=== PATIENT | female | born 1975 | race Caucasian/White ===

== ENCOUNTER 2018-04-27 08:16 | Emergency (ER) | payer BC ==
--- OUTSIDE RECORDS SUMMARY | 2018-04-27 08:25 | XMS REPORT ---
:1975 [facility] Address [address] [place] [address] Dr. Santacruz [address] [place] [id number] Care Team Providers Name Role Phone Unavailable Unavailable Unavailable Problems This patient has no known problems. Allergies, Adverse Reactions, Alerts This patient has no known allergies or adverse reactions. Medications This patient has no known medications.
[2018-04-27] MEDS ORDERED: DEXAMETHASONE 4 MG/ML VIAL ONE (09:16)
[2018-04-27] MEDS ORDERED: MECLIZINE HCL 12.5 MG TAB ONE (09:16)
--- NOTE | 2018-04-27 09:30 | ER ---
Nurse's Notes [facility] Name: Mony Osullivan Age: 43 yrs Sex: Female : 1975 Arrival Date: 04/27/2018 Time: 08:20 Bed 16 Private MD: Tatyana Quiros Diagnosis: Other peripheral vertigo, left ear;Influenza-like illness Presentation: 04/27 08:44 Presenting complaint: Patient states: woke up this morning feeling dizzy, worse when iw moving head back and forth and side to side, has been dealing with a cold, denies headache, denies fever. Transition of care: patient was not received from another setting of care. Onset of symptoms was April 27, 2018. Risk Assessment: Do you want to hurt yourself or someone else? Patient reports no desire to harm self or others. Initial Sepsis Screen: Does the patient meet any 2 criteria? No. Patient's initial sepsis screen is negative. Does the patient have a suspected source of infection? No. Patient's initial sepsis screen is negative. Care prior to arrival: None. 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 - Social history:: Smoking status: Patient/guardian denies using tobacco. - Ebola Screening: : Patient negative for fever greater than or equal to 101.5 degrees Fahrenheit, and additional compatible Ebola Virus Disease symptoms Patient denies exposure to infectious person Patient denies travel to an Ebola-affected area in the 21 days before illness onset No symptoms or risks identified at this time. Screenin:12 Abuse screen: Denies threats or abuse. Denies injuries from another. Nutritional bp screening: No deficits noted. Tuberculosis screening: No symptoms or risk factors identified. Fall Risk None identified. Assessment: 09:00 General: Appears in no apparent distress. comfortable, Behavior is cooperative, bp appropriate for age, anxious. Pain: Denies pain. Neuro: Level of Consciousness is awake, alert, obeys commands, Oriented to person, place, time, situation, Appropriate for age Moves all extremities. Full function Gait is steady, Reports dizziness. Cardiovascular: No deficits noted. Respiratory: Airway is patent Respiratory effort is even, unlabored, Respiratory pattern is regular, symmetrical. GI: No signs and/or symptoms were reported involving the gastrointestinal system. : No signs and/or symptoms were reported regarding the genitourinary system. EENT: No deficits noted. Derm: No deficits noted. Musculoskeletal: Circulation, motion, and sensation intact. Range of motion: intact in all extremities. 09:37 Reassessment: PT D/C HOME AMBULATORY, DX WITH VERTIGO. bp Vital Signs: 08:45 BP 114 / 73; Pulse 90; Resp 16; Temp 97.9(TE); Pulse Ox 98% on R/A; Weight 70.31 kg; iw Height 5 ft. 6 in. (167.64 cm); Pain 0/10; 09:37 BP 111 / 96; Pulse 80; Resp 14; Pulse Ox 100% ; bp 08:45 Body Mass Index 25.02 (70.31 kg, 167.64 cm) iw ED Course: 08:20 Patient arrived in ED. mr 08:20 Tatyana Quiros is Private Physician. mr 08:36 Leandro Cho MD is Attending Physician. ps1 08:41 Gustavo Shukla, YANCI is Primary Nurse. bp 08:45 Triage completed. iw 08:45 Arm band placed on. iw 09:12 Patient has correct armband on for positive identification. Bed in low position. Call bp light in reach. Side rails up X2. 09:29 Tatyana Quiros is Referral Physician. ps1 09:38 No provider procedures requiring assistance completed. Patient did not have IV access bp during this emergency room visit. Administered Medications: 09:10 Drug: Meclizine 25 mg Route: PO; bp 09:39 Follow up: Response: No adverse reaction; Marked relief of symptoms bp 09:10 Drug: Decadron - Dexamethasone 10 mg {Note: GIVEN PO.} Route: IVP; Site: Other; bp 09:38 Follow up: Response: No adverse reaction; Marked relief of symptoms bp Outcome: 09:29 Discharge ordered by . ps1 09:38 Discharged to home ambulatory, with family. bp 09:38 Condition: stable 09:38 Discharge instructions given to patient, Instructed on discharge instructions, follow up and referral plans. medication usage, Demonstrated understanding of instructions, follow-up care, medications, Prescriptions given X 3. 09:39 Patient left the ED. bp Signatures: Nicci Rivera Irene, RN RN iw Gustavo Shukla RN RN bp Leandro Cho MD MD ps1
--- NOTE | 2018-04-27 09:31 | EDPHYS ---
Physician Documentation [facility] Name: Mony Osullivan Age: 43 yrs Sex: Female : 1975 Arrival Date: 04/27/2018 Time: 08:20 Bed 16 Private MD: Tatyana Quiros ED Physician Leandro Cho HPI: 04/27 09:19 This 43 yrs old Female presents to ER via Ambulatory with complaints of ps1 Dizziness. 09:19 patient has had flu like illness for last 5 days. FLOWERS, sinus congestion, cough ps1 (productive), and now c/o dizziness. States that she has not been drinking 2/2 sore throat. Has ear fullness. . 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 - Social history:: Smoking status: Patient/guardian denies using tobacco. - Ebola Screening: : Patient negative for fever greater than or equal to 101.5 degrees Fahrenheit, and additional compatible Ebola Virus Disease symptoms Patient denies exposure to infectious person Patient denies travel to an Ebola-affected area in the 21 days before illness onset No symptoms or risks identified at this time. ROS: 09:19 Neck: Negative for injury, pain, and swelling, Cardiovascular: Negative for chest pain, ps1 palpitations, and edema, Abdomen/GI: Negative for abdominal pain, nausea, vomiting, diarrhea, and constipation, Back: Negative for injury and pain, MS/Extremity: Negative for injury and deformity, Skin: Negative for injury, rash, and discoloration. 09:19 Constitutional: Positive for body aches, fatigue, fever, malaise, poor PO intake. 09:19 ENT: Positive for sinus congestion. Exam: 09:19 Constitutional: This is a well developed, well nourished patient who is awake, alert, ps1 and in no acute distress. Head/Face: Normocephalic, atraumatic. Eyes: Pupils equal round and reactive to light, extra-ocular motions intact. Lids and lashes normal. Conjunctiva and sclera are non-icteric and not injected. 09:19 Cardiovascular: Regular rate and rhythm. No gallops, murmurs, or rubs. Normal PMI, no JVD. No pulse deficits. Respiratory: Lungs have equal breath sounds bilaterally, clear to auscultation and percussion. No rales, rhonchi or wheezes noted. No increased work of breathing, no retractions or nasal flaring. Abdomen/GI: Soft, non-tender, with normal bowel sounds. No distension or tympany. No guarding or rebound. No evidence of tenderness throughout. MS/ Extremity: Pulses equal, no cyanosis. Neurovascular intact. Full, normal range of motion. 09:19 ENT: External ear(s): swelling, that is minimal, bilaterally. 09:19 Neuro: Orientation: is normal, Mentation: is normal, HINTS: positive for gaze evoked nystagmus to left. No dysconjugate gaze, no catch up saccade. c/w peripheral vertigo. Vital Signs: 08:45 BP 114 / 73; Pulse 90; Resp 16; Temp 97.9(TE); Pulse Ox 98% on R/A; Weight 70.31 kg; iw Height 5 ft. 6 in. (167.64 cm); Pain 0/10; 09:37 BP 111 / 96; Pulse 80; Resp 14; Pulse Ox 100% ; bp 08:45 Body Mass Index 25.02 (70.31 kg, 167.64 cm) iw MDM: 09:18 Patient medically screened. ps1 Administered Medications: 09:10 Drug: Meclizine 25 mg Route: PO; bp 09:39 Follow up: Response: No adverse reaction; Marked relief of symptoms bp 09:10 Drug: Decadron - Dexamethasone 10 mg {Note: GIVEN PO.} Route: IVP; Site: Other; bp 09:38 Follow up: Response: No adverse reaction; Marked relief of symptoms bp Disposition: 04/27/18 09:29 Discharged to Home. Impression: Other peripheral vertigo, left ear, Influenza-like illness. - Condition is Stable. - Discharge Instructions: Dizziness, Influenza, Adult, Vertigo, [id number]. - Prescriptions for Meclizine 25 mg Oral Tablet - take 1 tablet by ORAL route every 8 hours As needed; 30 tablet. Zofran 8 mg Oral Tablet - take 1 tablet by ORAL route every 12 hours As needed; 20 tablet. chlorpheniramine maleate 4 mg Oral Tablet - take 1 tablet by ORAL route every 6 hours As needed; 30 tablet. - Medication Reconciliation Form, Thank You Letter, Antibiotic Education, Prescription Opioid Use form. - Follow up: Tatyana Quiros; When: As needed; Reason: Further diagnostic work-up, Recheck today's complaints, Continuance of care, Re-evaluation by your physician. Follow up: Emergency Department; When: As needed; Reason: Worsening of condition. Signatures: Gabbi Perla RN RN iw Gustavo Shukla RN RN bp Leandro Cho MD MD ps1 Corrections: (The following items were deleted from the chart) 09:39 09:29 04/27/2018 09:29 Discharged to Home. Impression: Other peripheral vertigo, left bp ear; Influenza-like illness. Condition is Stable. Forms are Medication Reconciliation Form, Thank You Letter, Antibiotic Education, Prescription Opioid Use. Follow up: Tatyana Quiros; When: As needed; Reason: Further diagnostic work-up, Recheck today's complaints, Continuance of care, Re-evaluation by your physician. Follow up: Emergency Department; When: As needed; Reason: Worsening of condition. ps1
== END 2018-04-27 09:39 | disposition home or self-care (01) ==
LOC: ER 08:16
DX: H81.399 Other peripheral vertigo, unspecified ear (principal); J11.1 Influenza due to unidentified influenza virus with other respiratory manifestations
CPT/HCPCS: 96374; 99283

== ENCOUNTER 2020-01-21 10:29 | Emergency (ER) | payer BC, OTHER ==
--- OUTSIDE RECORDS SUMMARY | 2020-01-21 10:31 | XMS REPORT ---
:1975 Author Organization [facility] Address [address] [facility] [address] [place] [address] Care Team Providers Name Role Phone Juan Wagoner [phone] PROBLEMS Type Condition ICD9-CM [id number] Onset Condition SNOMED Code Notes Code Code Dates Status Problem Acute F32.9 Active 785904542 depression Problem History of Z98.82 Active breast implant Problem Migraine G43.909 Active 64706817 without status migrainosus, not intractable, unspecified migraine type Problem GERD without K21.9 Active 931892332 esophagitis Problem Nausea alone R11.0 Active 355253466 ALLERGIES No Known Allergies ENCOUNTERS from 1975 to 2020-01-08 Encounter Location Date Provider Diagnosis [facility] [address] [facility] [address] Dec, Ritesh Martinez Gastroenteritis K52.9 [place] [address] IMMUNIZATIONS No Information SOCIAL HISTORY Tobacco Use: Social History Observation Description Date Details (start date - stop date) Former Smoker Sex Assigned At : Social History Observation Description Sex Assigned At Unknown PHQ9 Question Answer Notes Little interest or pleasure in doing things Several days Feeling down, depressed, or hopeless Nearly every day Trouble falling or staying asleep or sleeping too much Not a t all Feeling tired or having little energy More than half the day s Poor appetite or overeating Nearly every day Feeling bad about yourself, or that you are a failure, More than half the days or have let yourself or your family down Trouble concentrating on things, such as reading the Several days newspaper or watching television Moving or speaking so slowly that other people could Not at all have noticed; or the opposite, being so fidgety or restless that you have been moving around a lot more than usual Total Score 12 Interpretation Moderate Depression Thoughts that you would be better off or of Not at all hurting yourself in some way Alcohol Screen Question Answer Notes Did you have a drink containing alcohol in the past Yes year? Points 1 Interpretation Negative How often did you have a drink containing alcohol in Monthly or less (1 point) the past year? Tobacco Use/Smoking Question Answer Notes Are you a former smoker REASON FOR REFERRAL No Information VITAL SIGNS No information MEDICATIONS Medication SIG (Take, Route, Frequency, Start Date End Date Status Duration) Sertraline HCl 25 MG 1 tablet Orally Once a day for Active 30 Ubrelvy 100 MG 1 tablet may take second dose Dec, 15 Jan, Active at least 2 hours after first dose as needed Orally Once a day for 30 day(s) Dicyclomine HCl 20 MG 1 tablet Orally Four times a Dec, 5 2019 Active day as needed for cramping for 10 days Lansoprazole 30 MG take 1 capsule by mouth once Active daily for 30 days Oral Once a day for 90 days PROCEDURES No Information RESULTS No Results REASON FOR VISIT Sick/[place] pt MEDICAL (GENERAL) HISTORY Type Description Date Medical History GERD without esophagitis Medical History Migraine without status migrainosus, not intractable, unspecified migraine type Medical History Fibrocystic Breast Medical History Well woman exam with routine gynecologic al exam Medical History Acute vaginitis Surgical History Breast Implants Saline type. 1985 Goals Section No Information Health Concerns No Information MEDICAL EQUIPMENT No Information MENTAL STATUS No Information FUNCTIONAL STATUS No Information ASSESSMENTS Encounter Date Diagnosis Notes Dec, Gastroenteritis (ICD-10 - K52.9) PLAN OF TREATMENT Medication Medication Name Sig Start Date Stop Date Sertraline HCl 25 MG 1 tablet Orally Once a day for 30 Dicyclomine HCl 20 MG 1 tablet Orally Four times a day as Dec 5 Jan, 2020 needed for cramping for 10 days Treatment Notes Assessment Notes Clinical Notes Gastroenteritis 44 F presents with abd cramping and wate ry diarrhea x 4 days without f/c, tollerating fluids s olids.-will start dicyclomine-continue oral fluids a nd solids-RTC precautions discussed
--- OUTSIDE RECORDS SUMMARY | 2020-01-21 10:31 | XMS REPORT ---
:1975 Author Organization [facility] Address [address] [facility]. [address] [place] [address] Care Team Providers Name Role Phone Dariwn Wagoner [phone] PROBLEMS Type Condition ICD9-CM [id number] Onset Condition SNOMED Code Notes Code Code Dates Status Problem Acute F32.9 Active 916339461 depression Problem History of Z98.82 Active breast implant Problem Migraine G43.909 Active 19863736 without status migrainosus, not intractable, unspecified migraine type Problem GERD without K21.9 Active 131735618 esophagitis Problem Nausea alone R11.0 Active 100839676 ALLERGIES No Known Allergies ENCOUNTERS from 1975 to 2019-12-09 Encounter Location Date Provider Diagnosis [facility] [address] [facility] [place] Nov, Latasha Granados GERD without Family Medicine [address] [place], esophag itis K21.9 ; [place] [address] Nausea alone R 11.0 ; Acute depressio n F32.9 and Migra ine without status migrainosus, no t intractable, unspecified renny jayant type G43.909 IMMUNIZATIONS No Information SOCIAL HISTORY Tobacco Use: [...] REASON FOR REFERRAL No Information VITAL SIGNS Height 65 in Nov, Weight 164 lbs Nov, Temperature 98.0 degrees Fahrenheit Nov, BMI 27.29 kg/m2 Nov, Oximetry 98 % Nov, Respiratory Rate 16 /min Nov, Blood pressure systolic 115 mm Hg Nov, Blood pressure diastolic 69 mm Hg Nov, MEDICATIONS Medication SIG (Take, Route, Frequency, Start Date End Date Status Duration) Promethazine HCl 25 mg 1 tablet as needed Orally 2019 Active every 12 hrs for 30 days Sertraline HCl 25 MG 1 tablet Orally Once a day Nov, Active for 30 day(s) Lansoprazole 30 MG take 1 capsule by mouth once Active daily for 30 days Oral Once a day for 90 days PROCEDURES No Information RESULTS No Results REASON FOR VISIT Re-Establish Care/Switching from [place] (IN [facility]) MEDICAL (GENERAL) HISTORY Type Description Date Medical History GERD without esophagitis Medical History Migraine without status migrainosus, not intractable, unspecified migraine type Medical History Fibrocystic Breast Surgical History Breast Implants Saline type. 1985 Goals Section No Information Health Concerns No Information MEDICAL EQUIPMENT No Information MENTAL STATUS No Information FUNCTIONAL STATUS No Information ASSESSMENTS Encounter Date Diagnosis Notes Nov, Migraine without status migrainosus, not intractable, unspecified migraine type (ICD-10 - G43. 909) Nov, Acute depression (ICD-10 - F32.9) Nov, Nausea alone (ICD-10 - R11.0) Nov, GERD without esophagitis (ICD-10 - K21.9 ) PLAN OF TREATMENT Medication Medication Name Sig Start Date Stop Date Promethazine HCl 25 mg 1 tablet as needed Orally every 12 Dec, hrs for 30 days Lansoprazole 30 MG take 1 capsule by mouth once daily for 30 days Oral Once a day for 90 days Sertraline HCl 25 MG 1 tablet Orally Once a day for Sep, 2 020 day(s) Treatment Notes Assessment Notes Clinical Notes GERD without esophagitis Med as directedGet galbladder removed as soon as possible Nausea alone med as direcetd when needed Acute depression starte new med as directed daily Migraine without status med as directed when needed migrainosus, not intractable, unspecified migraine type Next Appt Details 4 Weeks Reason: Provider Name:Latasha Granados, 2020-01-01 04 :00:00 PM, [address] [facility], [address], [place], [address], Insurance Providers Payer Name Payer Payer Insured Patient Coverage Coverage End Address Phone Name Relationship to Start Date John e Insured Ambetter from [phone] Mony Osullivan self [place] [id number] [facility] [phone]
--- OUTSIDE RECORDS SUMMARY | 2020-01-21 10:31 | XMS REPORT ---
:1975 Author Organization [facility] Address [address] [facility]. [address] [place] [address] Care Team Providers Name Role Phone Darwin Wagoner [phone] PROBLEMS Type Condition ICD9-CM [id number] Onset Condition SNOMED Code Notes Code Code Dates Status Problem Acute F32.9 Active 898733962 depression Problem History of Z98.82 Active breast implant Problem Migraine G43.909 Active 80874835 without status migrainosus, not intractable, unspecified migraine type Problem GERD without K21.9 Active 192328700 esophagitis Problem Nausea alone R11.0 Active 910503783 ALLERGIES No Known Allergies ENCOUNTERS from 1975 to 2020-01-02 Encounter Location Date Provider Diagnosis [address] Dec, [place] [address] IMMUNIZATIONS No Information SOCIAL HISTORY Tobacco Use: [...] a day Nov, Active for 30 day(s) Promethazine HCl 25 mg 1 tablet as needed Orally 2019 Active every 12 hrs for 30 days Ubrelvy 100 MG 1 tablet may take second dose Dec, 15 Jan, 020 Active at least 2 hours after first dose as needed Orally Once a day for 30 day(s) Dicyclomine HCl 20 MG 1 tablet Orally Four times a Dec, 5 N 2019 Active day as needed for cramping for 10 days Lansoprazole 30 MG take 1 capsule by mouth once Active daily for 30 days Oral Once a day for 90 days PROCEDURES No Information RESULTS No Results REASON FOR VISIT Sick MEDICAL (GENERAL) HISTORY Type Description Date Medical [...] No Information FUNCTIONAL STATUS No Information ASSESSMENTS No Information PLAN OF TREATMENT Medication Medication Name Sig Start Date Stop Date Dicyclomine HCl 20 MG 1 tablet Orally Four times a day as DecJan, needed for cramping for 10 days Next Appt Details Provider Name:Latasha Granados, 2020-01-03 02 :20:00 PM, [address] [facility], [address], [place], [address],
--- OUTSIDE RECORDS SUMMARY | 2020-01-21 10:31 | XMS REPORT ---
:1975 Author Organization [facility] Address [address] [facility]. [address] [place] [address] Care Team Providers Name Role Phone Darwin Wagoner [phone] PROBLEMS Type Condition ICD9-CM [id number] Onset Condition SNOMED Code Notes Code Code Dates Status Problem Acute F32.9 Active 211952288 depression Problem History of Z98.82 Active breast implant Problem Migraine G43.909 Active 13936294 without status migrainosus, not intractable, unspecified migraine type Problem GERD without K21.9 Active 224722596 esophagitis Problem Nausea alone R11.0 Active 667663721 ALLERGIES No Known Allergies ENCOUNTERS from 1975 to 2019-12-14 Encounter Location Date Provider Diagnosis [facility] [address] [facility] Dec, Latasha Granados Migr bridger without Family Medicine [address] [place], [place] [address] not intractabl e, unspecified renny jayant type G43.909 an d Nausea alone R1 1.0 IMMUNIZATIONS No Information SOCIAL HISTORY Tobacco Use: [...] No Information VITAL SIGNS Height 65 in Dec, Weight 165.4 lbs Dec, Temperature 97.4 degrees Fahrenheit Dec, BMI 27.52 kg/m2 Dec, Oximetry 97 % Dec, Respiratory Rate 16 /min Dec, Blood pressure systolic 128 mm Hg Dec, Blood pressure diastolic 64 mm Hg Dec, MEDICATIONS Medication SIG (Take, Route, Frequency, Start Date End Date Status Duration) Lansoprazole 30 MG take 1 capsule by mouth once Active daily for 30 days Oral Once a day for 90 days Sertraline HCl 25 MG 1 tablet Orally Once a day Nov, Active for 30 day(s) Promethazine HCl 25 mg 1 tablet as needed Orally 2019 Active every 12 hrs for 30 days PROCEDURES No Information RESULTS No Results REASON FOR VISIT migranes; starting to have more often, forgot to mention at last visit [phone] MEDICAL (GENERAL) HISTORY Type Description Date Medical [...] Information ASSESSMENTS Encounter Date Diagnosis Notes Dec, Nausea alone (ICD-10 - R11.0) Dec, Migraine without status migrainosus, not intractable, unspecified migraine type (ICD-10 - G43. 909) PLAN OF TREATMENT Treatment Notes Assessment Notes Clinical Notes Migraine without status migrainosus, Samples:Ubrelvy starter pack Lot# not intractable, unspecified [id number] X 1Ubrelvy 50 mg tab Lo t# migraine type [id number] exp 01/2022 X 1 boxUbrelvy 100mg Tab Lot# [id number] exp 03/2021 X 1 boxTake med at the beginning of the FLOWERS. Nausea alone clear liquids Next Appt Details keep appt in 3 weeks Reason: Provider Name:Latasha Granados, 2019-12-25 04 :00:00 PM, [address] [facility], [address], [place], [address], Insurance Providers Payer Name Payer Payer Insured Patient Coverage Coverage End Address Phone Name Relationship to Start Date John e Insured Ambetter from [phone] Mony Osullivan self [place] [id number] [facility] [phone]
--- OUTSIDE RECORDS SUMMARY | 2020-01-21 10:31 | XMS REPORT | Continuity of Care Document ---
:1975 Author Organization [facility] t Address [address] [place] [address] Care Team Providers Name Role Phone Unavailable Unavailable Unavailable Problems This patient has no known problems. Allergies, Adverse Reactions, Alerts This patient has no known allergies or adverse reactions. Medications Ordered Filled Start Stop Current Ordering Indication Dosage Frequency Signature Comments Components Source Medication Medication Date Date Medication? Clinician (SIG) Name Name Lexapro Lexapro Yes Sarah [address] [facility] Prevacid Prevacid Yes Sarah [address] [facility] Promethazin Promethazin Yes Sarah [address] [facility] HCl e HCl [facility] as needed [facility] N[facility]V [facility] Procedures This patient has no known procedures. Encounters Start End Encounter Admission Attending Care Care Encounter Source Date/Time Date/Time Type Type Clinicians Facility Department ID 2020-01-16 2020-01-16 Out[facility] [id number] 2020-01-02 2020-01-02 [facility] [id number] [facility] 2020-01-02 2020-01-02 [facility] [id number] [facility] 2019-12-22 2019-12-[address] [id number] 2019-12-14 2019-12-[address] [facility] [id number] [facility] 2019-12-04 2019-12-[address] [facility] [id number] [facility] 2019-07-21 2019-07-21 [facility] [id number] [facility] 14:46[facility]00 14:46:00 [facility] Medicine Outpat[facility] Clinics 2019-05-08 2019-05-08 [facility] [id number] 13:43:00 13:43:00 [facility] Medicine Medicine Outpat[facility] ent Clinics 2019-04-26 2019-04-26 [facility] [id number] 16:38:00 16:38:00 [facility] Medicine l Medicine Outpat[facility] ent Clinics 2019-04-13 2019-04-13 [facility] [id number] 09:17:00 09:17:00 [facility] Medicine l Medicine Outpati ent Clinics 2019-04-11 2019-04-11 [facility] [id number] [address] 08:00:00 08:00:00 [facility] Medicine l Medicine Outpati ent Clinics 2019-04-05 2019-04-05 [facility] [id number] 10:25:00 10:25:00 [facility] Medicine l Medicine Outpati ent Clinics 2019-04-05 2019-04-05 [facility] [id number] 08:27:00 08:27:00 [facility] Medicine l Medicine Outpati ent Clinics 2019-03-30 2019-03-30 Out[facility] [id number] 09:40:00 09:40:00 [facility] Medicine Medicine Outpati ent Clinics 2019-03-16 2019-03-16 [facility] [id number] 15:20:00 15:20:00 [facility] Medicine Outpati ent Clinics 2019-03-15 2019-03-15 Outpatient [facility] [id number] 14:03:00 14:03:00 [facility] Medicine l Medicine Outpati ent Clinics 2019-03-14 2019-03-14 Outpatient [facility] [id number] 09:00:00 09:00:00 [facility] Results This patient has no known results.
--- OUTSIDE RECORDS SUMMARY | 2020-01-21 10:31 | XMS REPORT ---
:1975 Author Organization [facility] Address [address] [facility] [place] [address] Care Team Providers Name Role Phone Darwin Wagoner [phone] PROBLEMS Type Condition ICD9-CM SER06-XC Onset Condition SNOMED Code Notes Code Code Dates Status Problem Acute F32.9 Active 211812024 depression Problem History of Z98.82 Active breast implant Problem Migraine G43.909 Active 83376689 without status migrainosus, not intractable, unspecified migraine type Problem GERD without K21.9 Active 885368846 esophagitis Problem Nausea alone R11.0 Active 419148422 ALLERGIES No Known Allergies ENCOUNTERS from 1975 to 2020-01-16 Encounter Location Date Provider Diagnosis [facility] [address] [facility] Jan, Latasha Callaway Acut e depression F32.9 Family Medicine [address] [place] [address], ; [place] [address] L23.7 ; Migrai ne without status migrainosus, no t intractable, unspecified renny jayant type G43.909 an d Encounter for administration of vaccine Z23 IMMUNIZATIONS Vaccine Route Administration Date Status Flucelvax - single dose syringe IM Intramuscular Jan 16, 2020 Administered Kenalog (Triamcinolone) IM Intramuscular Jan 16, 2020 Adminis tered Dexamethasone IM Intramuscular Jan 16, 2020 Administered SOCIAL HISTORY Tobacco Use: Social History Observation Description Date Details (start date - stop date) Former Smoker Sex Assigned At : Social History Observation Description Sex Assigned At Unknown PHQ9 Question Answer Notes Little interest or pleasure in doing things More than half t he days Feeling down, depressed, or hopeless More than half the days Trouble falling or staying asleep or sleeping too More than half the days much Feeling tired or having little energy More than half the day s Poor appetite or overeating Nearly every day Feeling bad about yourself, or that you are a Nearly every d ay failure, or have let yourself or your family down Trouble concentrating on things, such as reading Several day s the newspaper or watching television Moving or speaking so slowly that other people Not at all could have noticed; or the opposite, being so fidgety or restless that you have been moving around a lot more than usual Total Score 15 Interpretation Moderately severe depression Thoughts that you would be better off [...] No Information VITAL SIGNS Height 65 in Jan, Weight 163.6 lbs Jan, Temperature 98.6 degrees Fahrenheit Jan, BMI 27.22 kg/m2 Jan, Oximetry 97 % Jan, Respiratory Rate 16 /min Jan, Blood pressure systolic 116 mm Hg Jan, Blood pressure diastolic 62 mm Hg Jan, MEDICATIONS Medication SIG (Take, Route, Frequency, Start Date End Date Status Duration) Sertraline HCl 50 MG 1 tablet Orally Once a day for Active 30 days Ubrelvy 100 MG 1 tablet may take second dose Dec, 15 Jan, 2 020 Active at least 2 hours after first dose as needed Orally Once a day for 30 day(s) Lansoprazole 30 MG take 1 capsule by mouth once Active daily for 30 days Oral Once a day for 90 days PROCEDURES No Information RESULTS No Results REASON FOR VISIT poison ana paula [id number] MEDICAL (GENERAL) HISTORY Type Description Date Medical [...] No Information ASSESSMENTS Encounter Date Diagnosis Notes Jan, Encounter for administration of vaccine (ICD-10 - Z23) Jan, Migraine without status migrainosus, not intractable, unspecified migraine type (ICD-10 - G43. 909) Jan, Poison ana paula dermatitis (ICD-10 - L23.7) Jan, Acute depression (ICD-10 - F32.9) PLAN OF TREATMENT Medication Medication Name Sig Start Date Stop Date Sertraline HCl 50 MG 1 tablet Orally Once a day for 30 days Treatment Notes Assessment Notes Clinical Notes Acute depression med as directed inc dose of sertraline to 50 mg daily Poison ana paula dermatitis med as directed Migraine without status migrainosus, sample: Lot# [id number] e xp 03/2021 not intractable, unspecified 2 boxes take 1 tab at beginning of migraine type FLOWERS. Next Appt Details 4 Weeks Reason: Provider Name:Latasha Granados 2020-02-19 09 :40:00 AM, [address] [facility], [address], [place], [address],
--- OUTSIDE RECORDS SUMMARY | 2020-01-21 10:31 | XMS REPORT ---
:1975 Author Organization [facility] Address [address] [facility] [place] [address] Care Team Providers Name Role Phone Darwin Wagoner [phone] PROBLEMS Type Condition ICD9-CM RVS23-RH Onset Condition SNOMED Code Notes Code Code Dates Status Problem Acute F32.9 Active 050025716 depression Problem History of Z98.82 Active breast implant Problem Migraine G43.909 Active 49200401 without status migrainosus, not intractable, unspecified migraine type Problem GERD without K21.9 Active 482974389 esophagitis Problem Nausea alone R11.0 Active 058775942 ALLERGIES No Known Allergies ENCOUNTERS from 1975 to 2019-12-22 Encounter Location Date Provider Diagnosis [facility] [address] [facility] [address] [place] [address] Dec, 2019 [place] [address] IMMUNIZATIONS No Information SOCIAL HISTORY Tobacco Use: [...] MG 1 tablet may take second dose Dec,Jan, 020 Active at least 2 hours after first dose as needed Orally Once a day for 30 day(s) PROCEDURES No Information RESULTS No Results REASON FOR VISIT Ubrelvy MEDICAL (GENERAL) HISTORY Type Description Date Medical [...] Medication Name Sig Start Date Stop Date Ubrelvy 100 MG 1 tablet may take second dose at least 2 Dec, Jan, hours after first dose as needed Orally Once a day for 30 day(s) Next Appt Details Provider Name:Latasha Granados, 2020-01-03 02 :20:00 PM, [address] [facility], [address], [place], [address], Insurance Providers Payer Name Payer Payer Insured Patient Coverage Coverage End Address Phone Name Relationship to Start Date John e Insured Amb[employer] from [phone] Mony Osullivan self [place] [id number] [facility] [id number]
--- NOTE | 2020-01-21 11:23 | ER ---
Nurse's Notes [facility] Name: Mony Osullivan Age: 45 yrs Sex: Female : 1975 Arrival Date: 01/21/2020 Time: 10:30 Bed 17 Private MD: Diagnosis: Rash and other nonspecific skin eruption Presentation: 01/20 10:40 Chief complaint: Patient states: Rash all over x 1 week, c/o itchiness. Went to PCP, aa5 had steroid and allergy shot, it quit itching for a day, then last night it came back and rashes broke out worse. Used Benadryl spray and cortisone cream, but only temporary relief. Coronavirus screen: Client denies travel out of the [place] in the last 14 days. At this time, the client does not indicate any symptoms associated with coronavirus-19. Ebola Screen: Patient negative for fever greater than or equal to 101.5 degrees Fahrenheit, and additional compatible Ebola Virus Disease symptoms Patient denies exposure to infectious person. Patient denies travel to an Ebola-affected area in the 21 days before illness onset. No symptoms or risks identified at this time. Initial Sepsis Screen: Does the patient meet any 2 criteria? No. Patient's initial sepsis screen is negative. Does the patient have a suspected source of infection? No. Patient's initial sepsis screen is negative. Risk Assessment: Do you want to hurt yourself or someone else? Patient reports no desire to harm self or others. Onset of symptoms was January 21, 2020. 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 - Social history:: Smoking status: Patient denies any tobacco usage or history of. - Family history:: not pertinent. - Hospitalizations: : No recent hospitalization is reported. Screenin:00 Abuse screen: Denies threats or abuse. Denies injuries from another. Nutritional sv screening: No deficits noted. Tuberculosis screening: No symptoms or risk factors identified. Fall Risk None identified. Assessment: 11:00 General: Appears in no apparent distress. comfortable, well groomed, well developed, sv Behavior is calm, cooperative, appropriate for age. Pain: Denies pain. Neuro: Level of Consciousness is awake, alert, obeys commands, Oriented to person, place, time, situation, Moves all extremities. Full function Gait is steady. Respiratory: Airway is patent Respiratory effort is even, unlabored, Respiratory pattern is regular, symmetrical. Derm: Skin is pink, warm \T\ dry. Rash noted that is itchy, red, urticaria, on chest, abdomen, right arm, left arm, right leg and left leg. Musculoskeletal: Range of motion: intact in all extremities. 11:09 Reassessment: Socks given to the pt per her request. sv 11:45 Reassessment: Pt waiting IM shot time before discharge. sv 12:05 Reassessment: Patient appears in no apparent distress at this time. No changes from sv previously documented assessment. Patient and/or family updated on plan of care and expected duration. Pain level reassessed. Patient is alert, oriented x 3, equal unlabored respirations, skin warm/dry/pink. Vital Signs: 10:40 BP 125 / 83; Pulse 80; Resp 16 S; Temp 98.2(O); Pulse Ox 100% on R/A; Weight 74.84 kg aa5 (R); Height 5 ft. 6 in. (167.64 cm) (R); 10:40 Body Mass Index 26.63 (74.84 kg, 167.64 cm) aa5 ED Course: 10:30 Patient arrived in ED. ag5 10:43 Triage completed. aa5 10:44 Arm band placed on right wrist. aa5 11:00 Patient has correct armband on for positive identification. Placed in gown. Bed in low sv position. Call light in reach. Door closed. Warm blanket given. Head of bed elevated. 11:05 Boni Rivero MD is Attending Physician. rn 11:09 Tatyana Young RN is Primary Nurse. sv 11:09 ED physician to see patient. sv 12:05 No provider procedures requiring assistance completed. Patient did not have IV access sv during this emergency room visit. Administered Medications: 11:44 Drug: SOLU-Medrol 125 mg Route: IM; Site: left gluteus; sv 12:04 Follow up: Response: No adverse reaction sv Outcome: : Discharge ordered by . rn 12:05 Discharged to home ambulatory. sv 12:05 Condition: stable 12:05 Discharge instructions given to patient, Instructed on discharge instructions, follow up and referral plans. medication usage, Demonstrated understanding of instructions, follow-up care, medications, Prescriptions given X 4. 12:05 Patient left the ED. sv Signatures: Tatyana Young, RN RN Boni Amaral MD MD rn Calderon, Audri, RN RN aa5 Jessica Berrios
--- NOTE | 2020-01-21 11:23 | EDPHYS ---
Physician Documentation [facility] Name: Mony Osullivan Age: 45 yrs Sex: Female : 1975 Arrival Date: 01/21/2020 Time: 10:30 Bed 17 Private MD: ED Physician Boni Rivero HPI: 01/20 11:17 This 45 yrs old Female presents to ER via Ambulatory with complaints of Rash. rn 11:17 The patient's rash thought to be caused by an unknown cause. The rash is located on the rn body diffusely. The rash can be described as diffuse, erythematous, papular. 11:18 Onset: The symptoms/episode began/occurred 1 week(s) ago. Associated signs and rn symptoms: Pertinent negatives: difficulty breathing, fever, swelling of lips, swelling of throat, swelling of tongue. Severity of symptoms: At their worst the symptoms were mild in the emergency department the symptoms are unchanged. The patient has not experienced similar symptoms in the past. The patient has been recently seen by a physician:. Reports diffuse itching and rash to body, started on right arm and spread to torso. No fever. 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 No drainage. Given steroid injection by pcp and improved itching, rash itself did not improve. No other person in household showing similar symptoms. . [employer] DEVELOPMENT: 10:44 LMP N/A - Irregular menses aa5 Historical: - Allergies: 10:44 No Known Allergies; aa5 - Home Meds: 10:44 Zoloft Oral [Active]; pantoprazole oral oral [Active]; aa5 - PMHx: 10:44 PUD; GERD; Depression; aa5 - PSHx: 10:44 Tubal ligation; aa5 - Immunization history:: Adult Immunizations up to date, Flu vaccine is up to date. - Social history:: Smoking status: Patient denies any tobacco usage or history of. - Family history:: not pertinent. - Hospitalizations: : No recent hospitalization is reported. ROS: 11:18 Constitutional: Negative for fever, chills, and weight loss, Eyes: Negative for injury, rn pain, redness, and discharge, ENT: Negative for injury, pain, and discharge, Neck: Negative for injury, pain, and swelling, Cardiovascular: Negative for chest pain, palpitations, and edema, Respiratory: Negative for shortness of breath, cough, wheezing, and pleuritic chest pain, Abdomen/GI: Negative for abdominal pain, nausea, vomiting, diarrhea, and constipation, MS/Extremity: Negative for injury and deformity, Skin: + rash diffusely Neuro: Negative for headache, weakness, numbness, tingling, and seizure. Exam: 11:18 Constitutional: This is a well developed, well nourished patient who is awake, alert, rn and in no acute distress. Head/Face: Normocephalic, atraumatic. Respiratory: No wheezing or respiratory distress Skin: warm, dry, + diffuse erythematous papular rash over extremities/torso/neck. No fluctuance. + numerous excoriations. Vital Signs: 10:40 BP 125 / 83; Pulse 80; Resp 16 S; Temp 98.2(O); Pulse Ox 100% on R/A; Weight 74.84 kg aa5 (R); Height 5 ft. 6 in. (167.64 cm) (R); 10:40 Body Mass Index 26.63 (74.84 kg, 167.64 cm) aa5 MDM: 11:05 Patient medically screened. rn 11:18 Differential diagnosis: allergic reaction, parasite infection, folliculitis. Data rn reviewed: vital signs, nurses notes, and as a result, I will discharge patient. Counseling: I had a detailed discussion with the patient and/or guardian regarding: the historical points, exam findings, and any diagnostic results supporting the discharge/admit diagnosis, the need for outpatient follow up, to return to the emergency department if symptoms worsen or persist or if there are any questions or concerns that arise at home. Special discussion: I discussed with the patient/guardian in detail that at this point there is no indication for admission to the hospital. It is understood, however, that if the symptoms persist or worsen the patient needs to return immediately for re-evaluation. Based on the history and exam findings, there is no indication for further emergent testing or inpatient evaluation. I discussed with the patient/guardian the need to see the compensation intern for further evaluation of the symptoms. ED course: Possible scabies/dermatitis/folliculitis. Unable to test here, will dc home with steroids/abx/permethrin, and recommend dermatology f/u if worsens. . Administered Medications: 11:44 Drug: SOLU-Medrol 125 mg Route: IM; Site: left gluteus; sv 12:04 Follow up: Response: No adverse reaction sv Disposition: 01/21/20 11:22 Discharged to Home. Impression: Rash and other nonspecific skin eruption. - Condition is Stable. - Discharge Instructions: Rash. - Prescriptions for permethrin 5 % Topical cream - apply 1 application by TOPICAL route once wkly for 2 weeks leave on for 8-14 hr, then remove by thorough washing; 2 tube. Hydroxyzine HCl 50 mg Oral Tablet - take 1 tablet by ORAL route every 8 hours As needed; 20 tablet. Prednisone 20 mg Oral Tablet - take 3 tablet by ORAL route once daily for 5 days; 15 tablet. Bactrim DS 800- 160 mg Oral Tablet - take 1 tablet by ORAL route every 12 hours for 10 days; 20 tablet. - Medication Reconciliation Form, Thank You Letter, Antibiotic Education, Prescription Opioid Use form. - Follow up: Private Physician; When: As needed; Reason: Recheck today's complaints, Re-evaluation by your physician. - Problem is an ongoing problem. - Symptoms are unchanged. Signatures: Tatyana Young RN RN sv Nieto, Roman, MD MD rn Calderon, Audri, RN RN aa5 Corrections: (The following items were deleted from the chart) 12:05 11:22 01/21/2020 11:22 Discharged to Home. Impression: Rash and other nonspecific skin sv eruption. Condition is Stable. Forms are Medication Reconciliation Form, Thank You Letter, Antibiotic Education, Prescription Opioid Use. Follow up: Private Physician; When: As needed; Reason: Recheck today's complaints, Re-evaluation by your physician. Problem is an ongoing problem. Symptoms are unchanged. rn
[2020-01-21] MEDS ORDERED: METHYLPREDNISOLONE 125 MG INJ ONE (11:54)
[2020-01-21 12:56] VITALS: BP 125/83; TEMP 98.2; O2SAT 100
== END 2020-01-21 12:05 | disposition home or self-care (01) ==
LOC: ER 10:29
DX: R21 Rash and other nonspecific skin eruption (principal); K21.9 Gastro-esophageal reflux disease without esophagitis; F32.9 Major depressive disorder, single episode, unspecified
CPT/HCPCS: 96372; 99283; J2930

== ENCOUNTER 2020-03-25 16:26 | Emergency (ER) | payer OTHER ==
--- OUTSIDE RECORDS SUMMARY | 2020-03-25 16:28 | XMS REPORT ---
:1975 Author Organization [facility] Address [address] [facility]. [address] [place] [address] Care Team Providers Name Role Phone Darwin Wagoner [phone] PROBLEMS Type Condition ICD9-CM BMD42-FX Onset Condition SNOMED Code Notes Code Code Dates Status Problem Acute F32.9 Active 616815967 depression Problem History of Z98.82 Active breast implant Problem Migraine G43.909 Active 41325018 without status migrainosus, not intractable, unspecified migraine type Problem GERD without K21.9 Active 122719649 esophagitis Problem Nausea alone R11.0 Active 866670551 ALLERGIES No Known Allergies ENCOUNTERS from 1975 to 2020-02-18 Encounter Location Date Provider Diagnosis [facility] [address] [facility] Feb, Latasha Arrietao [facility] [address], [place] [address] suspected expo sure to other biologica l agents ruled ou t Z03.818 ; Diarr hea, unspecified typ e R19.7 and Non-intractable vomiting with n ausea, unspecified vom iting type R11.2 IMMUNIZATIONS Vaccine Route Administration Date Status Flucelvax [...] No Information VITAL SIGNS Height 65 in Feb, Weight 165 lbs Feb, Temperature 98.6 degrees Fahrenheit Feb, BMI 27.45 kg/m2 Feb, MEDICATIONS Medication SIG (Take, Route, Frequency, Notes Start Date End John e Status Duration) Sertraline HCl 50 MG 1 tablet Orally Once a day Active for 30 days Promethazine HCl 25 mg 1 tablet as needed Orally Active every 12 hrs for 15 Lansoprazole 30 MG take 1 capsule by mouth once Active daily for 30 days Oral Once a day for 90 days PROCEDURES No Information RESULTS No Results REASON FOR VISIT diarrhea, nausea, Telehealth Visit, Telehealth Visit MEDICAL (GENERAL) HISTORY Type Description Date Medical [...] STATUS No Information ASSESSMENTS Encounter Date Diagnosis Assessment Notes Treatment Notes Treatm ent Clinical Notes Feb, Encounter for With patient's observation for history of travel suspected and exposure to other duration/severity of biological agents symptoms, it was ruled out (ICD-10 determined to - Z03.818) proceed with testing of this patient for suspected case of COVID-19. CDC/IDER protocols were followed. While maintaining minimal exposure specimen was collected while patient remained in their car. Provider went to the car dressed in appropriate PPE to collect the specimen while maintaining protocol. Appropriate departments were notified of PUI: [facility] department, [facility] Quality Nurse. In addition, efforts were made to minimize the number of faculty and staff exposed to PUI by having one employee assess patient, take sample and debt management counselor patient, utilizing cell phone to communicate to limit amount of time entering and exiting isolation room, when necessary. === During testing/collection of nasopharyngeal specimen, staff/provider wore proper PPE, bagged specimen and properly disposed of PPE accordingly. - Specimen was verified with patient name/, properly handed to appropriate lab personnel. Patient was counseled based on clinical assessment, disease severity, and input from [facility]. if local [facility] department deemed that patient can be sent home, patient was provided with a surgical mask and advised to wear while commuting home. Patient was advised to self-quarantine for 14 days, or until negative results are received. Patient was instructed to refer to CDC guidelines and provided additional information on self-quarantine. Local [facility] department contact information was given to patient: ==[facility], [address] [place] [address]. [phone] or [phone] ====== First day of 14-day quarantine: Feb, Diarrhea, BRAT diet unspecified type (ICD-10 - R19.7) Feb, Non-intractable clear liquids vomiting with If unable to stop nausea, vomiting to ER unspecified vomiting type (ICD-10 - R11.2) Feb, Other Total time spen t by provider during this virtual visit w as 7 minutes. Also , time was spent counseling and coordinating ca re including but n ot limited to discussion of test results, diagnostic or treatment recommendations , prognosis, risk s and benefits of management options, instructions, education, compliance and or risk reduction. Total time spen t by provider during this virtual visit w as minutes. Als o, time was spent counseling and coordinating ca re including but n ot limited to discussion of test results, diagnostic or treatment recommendations , prognosis, risk s and benefits of management options, instructions, education, compliance and or risk reduction. PLAN OF TREATMENT Treatment Notes Assessment Notes Clinical Notes Encounter for observation for With patient's history of benedicto el and suspected exposure to other duration/severity of symptoms, i t biological agents ruled out was determined to proceed with testing of this patient for suspected case of COVID-19. CDC/IDER protocols were followed. While maintaining minimal exposure specimen was collected while patient remained in their car. Provider went to the car dressed in appropriate PPE to collect the specimen while maintaining protocol. Appropriate departments were notified of PUI: [facility] department, [facility] Quality Nurse. In addition, efforts were made to minimize the number of faculty and staff exposed to PUI by having one employee assess patient, take sample and debt management counselor patient, utilizing cell phone to communicate to limit amount of time entering and exiting isolation room, when necessary. During testing/collection of nasopharyngeal specimen, staff/provider wore proper PPE, bagged specimen and properly disposed of PPE accordingly. - Specimen was verified with patient name/, properly handed to appropriate lab personnel. Patient was counseled based on clinical assessment, disease severity, and input from [facility] department. if local [facility] department deemed that patient can be sent home, patient was provided with a surgical mask and advised to wear while commuting home. Patient was advised to self-quarantine for 14 days, or until negative results are received. Patient was instructed to refer to CDC guidelines and provided additional information on self-quarantine. Local [facility] department contact information was given to patient: ==[facility], [address] [place] [address]. [phone] or [phone] ====== First day of 14-day quarantine: Diarrhea, unspecified type BRAT diet Non-intractable vomiting with clear liquidsIf unable to stop nausea, unspecified vomiting type vomiting to ER Treatment Notes Test Name Order Date Novel Coronavirus (COVID-19), MELIDA 2020-02-18 Inpatient 2020-02-18 Next Appt Details pending test results Reason: Insurance Providers Payer Name Payer Payer Insured Patient Coverage Coverage End Address Phone Name Relationship to Start Date John e Insured Ambetter from [phone] Mony Osulliavn self [address] [place] [id number] [address] [facility] [address]
--- OUTSIDE RECORDS SUMMARY | 2020-03-25 16:28 | XMS REPORT | Continuity of Care Document ---
:1975 Author Organization [facility] t Address [address] [place] [address] Care Team Providers Name Role Phone Unavailable Unavailable Unavailable Problems This patient has no known problems. Allergies, Adverse Reactions, Alerts This patient has no known allergies or adverse reactions. Medications Ordered Filled Start Stop Current Ordering Indication Dosage Frequency Signature Comments Components Source Medication Medication Date Date Medication? Clinician (SIG) Name Name Lexapro Lexapro 2019-0 Yes Sarah [address] [facility] Prevacid Prevacid Yes Sarah [address] [facility] Promethazin Promethazin Yes Sarah [address] [facility] HCl e HCl [facility] as needed [facility] - for N/V [facility] Procedures This patient has no known procedures. Encounters Start End Encounter Admission Attending Care Care Encounter Source Date/Time Date/Time Type Type Clinicians Facility Department ID 2020-02-15 2020-02-15 Outpatient [facility] [id number] [facility] 2020-02-15 2020-02-15 Outpatient [facility] [id number] [facility] 2020-01-16 2020-01-16 Outpatient [facility] [id number] [facility] 2020-01-02 2020-01-02 [facility] [id number] [facility] 2020-01-02 2020-01-02 [facility] [id number] [facility] 2019-12-22 2019-12-22 Outpatient [facility] [id number] [facility] 2019-12-14 2019-12-14 Out[facility] [id number] [facility] 2019-12-04 2019-12-04 Out[facility] [id number] [facility] 2019-07-21 2019-07-21 [facility] [id number] 14:46:00 14:46:00 [facility] Medicine l Medicine Outpati ent Clinics 2019-05-08 2019-05-08 [facility] [id number] 13:43:00 13:43:00 [facility] Medicine l Medicine Outpati ent Clinics 2019-04-26 2019-04-26 [facility] [id number] 16:38:00 16:38:00 t [facility] Medicine l Medicine Outpati ent Clinics 2019-04-13 2019-04-13 [facility] [id number] 09:17:00 09:17:00 t [facility] Medicine l Medicine Outpati ent Clinics 2019-04-11 2019-04-11 [facility] [id number] 08:00:00 08:00:00 [facility] Medicine Medicine Outpati ent Clinics 2019-04-05 2019-04-05 [facility] [id number] 10[facility]25:00 10:25:00 t [facility] Medicine Outpati ent Clinics 2019-04-05 2019-04-05 [facility] [id number] 08:27:00 08:27:00 t [facility] Medicine Outpati ent Clinics 2019-03-30 2019-03-30 [facility] [id number] 09:40:00 09:40:00 t [facility] Medicine Outpati ent Clinics 2019-03-16 2019-03-16 [facility] [id number] 15:20:00 15:20:00 t [facility] Medicine Outpati ent Clinics 2019-03-15 2019-03-15 [facility] [id number] 14:03:00 14:03:00 [facility] Medicine Outpati ent Clinics 2019-03-14 2019-03-14 [facility] [id number] 09:00:00 09:00:00 [facility] Medicine Outpati ent Clinics Results This patient has no known results.
--- OUTSIDE RECORDS SUMMARY | 2020-03-25 16:28 | XMS REPORT ---
:1975 Author Organization [facility] Address [address] [facility]. [address] [place] [address] Care Team Providers Name Role Phone Darwin Wagoner [phone] PROBLEMS Type Condition ICD9-CM YPW23-BR Onset Condition SNOMED Code Notes Code Code Dates Status Problem Acute F32.9 Active 577805613 depression Problem History of Z98.82 Active breast implant Problem Migraine G43.909 Active 26513593 without status migrainosus, not intractable, unspecified migraine type Problem GERD without K21.9 Active 297366723 esophagitis Problem Nausea alone R11.0 Active 723495060 ALLERGIES No Known Allergies ENCOUNTERS from 1975 to 2020-02-19 Encounter Location Date Provider Diagnosis [facility] [address] [facility] [address] Feb, [place] [address] IMMUNIZATIONS Vaccine Route Administration Date Status Flucelvax [...] information MEDICATIONS Medication SIG (Take, Route, Frequency, Notes [...] Information RESULTS No Results REASON FOR VISIT COVID test - NEGATIVE MEDICAL (GENERAL) HISTORY Type Description Date Medical [...] Information ASSESSMENTS No Information PLAN OF TREATMENT No Information Insurance Providers Payer Name Payer Payer Insured Patient Coverage Coverage End Address Phone Name Relationship to Start Date John e Insured Elanar from [phone] Mony Osullivan self [address] [place] [id number] [address] [facility] [address]
[2020-03-25 18:33] LABS: SARS-COV-2 RT PCR POSITIVE (NEGATIVE)
--- NOTE | 2020-03-25 18:41 | ER ---
Nurse's Notes [facility] Name: Mony Osullivan Age: 45 yrs Sex: Female : 1975 Arrival Date: 03/25/2020 Time: 16:28 Bed 29 Private MD: Diagnosis: Coronavirus infection, unspecified Presentation: 03/25 16:41 Chief complaint: Patient states: This morning, started having cough, sore throat and ca1 congestion. Coronavirus screen: Client denies travel out of the [place] in the last 14 days. congestion, cough unrelated to allergies, sore throat, Client presents with at least one sign or symptom that may indicate coronavirus-19. Standard/surgical mask placed on the client. Provider contacted for isolation considerations. Ebola Screen: Patient negative for fever greater than or equal to 101.5 degrees Fahrenheit, and additional compatible Ebola Virus Disease symptoms Patient denies exposure to infectious person. Patient denies travel to an Ebola-affected area in the 21 days before illness onset. No symptoms or risks identified at this time. Initial Sepsis Screen: Does the patient meet any 2 criteria? No. Patient's initial sepsis screen is negative. Does the patient have a suspected source of infection? No. Patient's initial sepsis screen is negative. Risk Assessment: Do you want to hurt yourself or someone else? Patient reports no desire to harm self or others. Onset of symptoms was March 25, 2020. 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 - Social history:: Smoking status: Patient/guardian denies using tobacco, the patient reports quitting approximately 30 years ago. Screenin:34 Abuse screen: Denies threats or abuse. Denies injuries from another. Nutritional ca1 screening: No deficits noted. Tuberculosis screening: No symptoms or risk factors identified. Fall Risk None identified. Assessment: 18:34 General: Appears in no apparent distress. comfortable, Behavior is calm, cooperative, ca1 appropriate for age. Pain: Denies pain. Neuro: Level of Consciousness is awake, alert, obeys commands, Oriented to person, place, time, situation. Respiratory: Reports cough that is Airway is patent Respiratory effort is even, unlabored, Breath sounds are clear bilaterally. EENT: Throat is clear is pink. Derm: Skin is intact, is healthy with good turgor, Skin is pink, warm \T\ dry. Musculoskeletal: Circulation, motion, and sensation intact. Capillary refill < 3 seconds. 18:35 EENT: Reports nasal congestion. ca1 Vital Signs: 16:41 BP 111 / 74; Pulse 79; Resp 15 S; Temp 97.6(TE); Pulse Ox 100% on R/A; Weight 74.84 kg ca1 (R); Height 5 ft. 6 in. (167.64 cm) (R); Pain 0/10; 18:50 BP 105 / 71; Pulse 81; Resp 16 S; Pulse Ox 100% on R/A; ca1 16:41 Body Mass Index 26.63 (74.84 kg, 167.64 cm) ca1 ED Course: 16:28 Patient arrived in ED. as 16:40 [facility] Urban F[facility]-C [facility] kb 16:40 Jessee Collazo MD is Attending Physician. kb 16:43 Triage completed. ca1 16:44 Arm band placed on right wrist. ca1 18:34 Patient has correct armband on for positive identification. Bed in low position. Call ca1 light in reach. Side rails up X 1. Pulse ox on. NIBP on. 18:49 Lakeisha Mcpherson RN is Primary Nurse. ca1 18:50 No provider procedures requiring assistance completed. Patient did not have IV access ca1 during this emergency room visit. Administered Medications: No medications were administered Outcome: 18:41 Discharge ordered by MD. kb 18:50 Discharged to home ambulatory. ca1 18:50 Condition: stable 18:50 Discharge instructions given to patient, Instructed on discharge instructions, follow up and referral plans. Demonstrated understanding of instructions, follow-up care. 18:58 Patient left the ED. ca1 Signatures: Karen Urban FNP-C FNP-Trisha Mcgraw as Lakeisha Mcpherson RN RN ca1 Corrections: (The following items were deleted from the chart) 18:35 18:34 General: Appears in no apparent distress. comfortable, Behavior is calm, ca1 cooperative, appropriate for age, ca1 18:35 18:34 Respiratory: Airway is patent Respiratory effort is even, unlabored, Breath ca1 sounds are clear bilaterally. ca1
--- NOTE | 2020-03-25 18:41 | EDPHYS ---
Physician Documentation [facility] Name: Mony Osullivan Age: 45 yrs Sex: Female : 1975 Arrival Date: 03/25/2020 Time: 16:28 Bed 29 Private MD: DEBBI Physician Jessee Collazo HPI: 03/25 18:22 This 45 yrs old Female presents to ER via Ambulatory with complaints of Sore kb Throat, Cough, Chest Tightness. 18:23 The patient or guardian reports cough, that is intermittent, described as mild, with no kb sputum. Onset: The symptoms/episode began/occurred this morning. Severity of symptoms: At their worst the symptoms were mild, in the emergency department the symptoms are unchanged. Modifying factors: The symptoms are alleviated by nothing, the symptoms are aggravated by nothing. Associated signs and symptoms: Pertinent positives: sore throat. The patient has not experienced similar symptoms in the past. The patient has not recently seen a physician. Pt states she has had mild cough, congestion and sore throat that began this morning. Daughter has multiple covid symptoms and had an exposure so she wanted to make sure that isn't what she has. 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 - Social history:: Smoking status: Patient/guardian denies using tobacco, the patient reports quitting approximately 30 years ago. ROS: 18:25 Constitutional: Negative for fever, chills, and weight loss, Cardiovascular: Negative kb for chest pain, palpitations, and edema, Abdomen/GI: Negative for abdominal pain, nausea, vomiting, diarrhea, and constipation, MS/Extremity: Negative for injury and deformity, Skin: Negative for injury, rash, and discoloration, Neuro: Negative for headache, weakness, numbness, tingling, and seizure. 18:25 ENT: Positive for sinus congestion, sore throat. 18:25 Respiratory: Positive for cough. Exam: 18:25 Constitutional: This is a well developed, well nourished patient who is awake, alert, kb and in no acute distress. Head/Face: Normocephalic, atraumatic. Chest/axilla: Normal chest wall appearance and motion. Nontender with no deformity. No lesions are appreciated. Cardiovascular: Regular rate and rhythm with a normal S1 and S2. No gallops, murmurs, or rubs. Normal PMI, no JVD. No pulse deficits. Respiratory: Lungs have equal breath sounds bilaterally, clear to auscultation and percussion. No rales, rhonchi or wheezes noted. No increased work of breathing, no retractions or nasal flaring. Abdomen/GI: Soft, non-tender, with normal bowel sounds. No distension or tympany. No guarding or rebound. No evidence of tenderness throughout. Skin: Warm, dry with normal turgor. Normal color with no rashes, no lesions, and no evidence of cellulitis. MS/ Extremity: Pulses equal, no cyanosis. Neurovascular intact. Full, normal range of motion. Neuro: Awake and alert, GCS 15, oriented to person, place, time, and situation. Cranial nerves II-XII grossly intact. Motor strength 5/5 in all extremities. Sensory grossly intact. Cerebellar exam normal. Normal gait. Vital Signs: 16:41 BP 111 / 74; Pulse 79; Resp 15 S; Temp 97.6(TE); Pulse Ox 100% on R/A; Weight 74.84 kg ca1 (R); Height 5 ft. 6 in. (167.64 cm) (R); Pain 0/10; 18:50 BP 105 / 71; Pulse 81; Resp 16 S; Pulse Ox 100% on R/A; ca1 16:41 Body Mass Index 26.63 (74.84 kg, 167.64 cm) ca1 MDM: 16:40 Patient medically screened. kb 18:24 Data reviewed: vital signs, nurses notes. Data interpreted: Pulse oximetry: on room air kb is 100 %. Interpretation: normal. 18:40 Counseling: I had a detailed discussion with the patient and/or guardian regarding: the kb historical points, exam findings, and any diagnostic results supporting the discharge/admit diagnosis, lab results, the need for outpatient follow up, a family practitioner, to return to the emergency department if symptoms worsen or persist or if there are any questions or concerns that arise at home. 03/25 16:41 Order name: Strep; Complete Time: 17:35 kb 03/25 17:34 Order name: Throat Culture EDTX 03/25 18:33 Order name: COVID-19/FLU A+B; Complete Time: 18:36 EDMS Administered Medications: No medications were administered Disposition: 03/26 06:37 Co-signature as Attending Physician, Jessee Collazo MD I agree with the assessment and the [facility] plan of care. Disposition: 03/25/20 18:41 Discharged to Home. Impression: Coronavirus infection, unspecified. - Condition is Stable. - Discharge Instructions: Viral Respiratory Infection, Quyc-Mv-Llke, COVID-19. - Medication Reconciliation Form, Thank You Letter, Antibiotic Education, Prescription Opioid Use, Work release form form. - Follow up: Emergency Department; When: As needed; Reason: Worsening of condition. Follow up: Private Physician; When: 2 - 3 days; Reason: Recheck today's complaints, Continuance of care, Re-evaluation by your physician. Signatures: Dispatcher [employer] [facility] Karen Urban, APPLICATION SUPPORT ADMINISTRATOR-C APPLICATION SUPPORT ADMINISTRATOR-Jessee Cobb MD MD noe Shaheenob, Lakeisha, RN RN ca1 Corrections: (The following items were deleted from the chart) 03/25 17:18 16:41 CORONAVIRUS+MR.LAB.BRZ ordered. [facility] 17:18 16:41 Influenza Screen (A \T\ B)+BA.LAB.BRZ ordered. [facility] 18:58 18:41 03/25/2020 18:41 Discharged to Home. Impression: Coronavirus infection, ca1 unspecified. Condition is Stable. Forms are Medication Reconciliation Form, Thank You Letter, Antibiotic Education, Prescription Opioid Use. Follow up: Emergency Department; When: As needed; Reason: Worsening of condition. Follow up: Private Physician; When: 2 - 3 days; Reason: Recheck today's complaints, Continuance of care, Re-evaluation by your physician. kb
[2020-03-25 19:50] VITALS: TEMP 97.6; O2SAT 100
[2020-03-25 19:53] VITALS: BP 105/71
== END 2020-03-25 18:58 | disposition home or self-care (01) ==
LOC: ER 16:26
DX: U07.1 COVID-19 (principal); Z87.891 Personal history of nicotine dependence; F32.9 Major depressive disorder, single episode, unspecified; K21.9 Gastro-esophageal reflux disease without esophagitis
CPT/HCPCS: 87070; 87081; 0240U; 99283